=== PATIENT | female | born 2005 | race Caucasian/White ===

== ENCOUNTER 2025-07-10 12:01 | Emergency (ER) | payer MEDICAID ==
[~2025-07-10] VITALS: Ht 162.6 cm; Wt 49.0 kg
[2025-07-10 12:10] VITALS: TEMP 37.2; O2SAT 99
[2025-07-10 13:23] LABS: CLARITY URINE CLEAR (CLEAR); COLOR URINE DARK YELLOW (YELLOW); GLUCOSE URINE NEGATIVE (NEGATIVE); KETONES URINE 3+ (NEGATIVE); LEUKOCYTE ESTERASE URINE TRACE (NEGATIVE); NITRITE URINE NEGATIVE (NEGATIVE); OCCULT BLOOD URINE 3+ (NEGATIVE); PH URINE 6.0 (4.5-8.0); PROTEIN URINE 1+ (NEGATIVE); SPECIFIC GRAVITY URINE 1.017 (1.005-1.030); UROBILINOGEN URINE 1.0 E.U./dL (0.2-1.0)
[2025-07-10 13:45] LABS: BACTERIA URINE 1+; SQUAMOUS EPITHELIAL CELL URINE 1+ /lpf (RARE/1+); YEAST URINE NONE SEEN
[2025-07-10 14:26] LABS: BASOPHILS % 0.2 % (0.0-2.0); EOSINOPHILS % 0.1 % (0.0-5.0); HEMATOCRIT. 40.0 % (36.0-48.0); HEMOGLOBIN. 13.3 g/dL (12.0-16.0); LYMPHOCYTES % 8.5 % (20.0-50.0); MEAN PLATELET VOLUME 8.2 fl (7.4-10.4); MONOCYTES % 13.6 % (2.0-8.0); NEUTROPHILS % 77.6 % (40.0-76.0); PLATELET 219 x1000/uL (130-400); RED BLOOD CELL COUNT 4.32 mill/uL (4.2-5.4); RED CELL DISTRIBUTION WIDTH 12.6 % (11.6-14.6)
[2025-07-10 14:39] LABS: CREATININE 0.8 mg/dL (0.6-1.0); HCG SCREEN NEGATIVE; UREA NITROGEN BLOOD 8 mg/dL (9-23)
[2025-07-10 14:41] LABS: ASPARTATE AMINOTRANSFERASE 12 IU/L (<34); BILIRUBIN DIRECT 0.4 mg/dL (<=3.0); BILIRUBIN TOTAL 1.3 mg/dL (0.1-1.0); PROTEIN TOTAL 7.8 g/dL (6.0-8.3)
[2025-07-10] MEDS ORDERED: CEPH500C2 MT (15:41)
[2025-07-10] MEDS: ACETAMINOPHEN 325MG TABLET PO ONE (16:16)
[2025-07-10 16:27] VITALS: BP 113/69; PULSE 90; RESP 18; O2SAT 100
== END 2025-07-10 16:39 | disposition home or self-care (01) ==
LOC: ER 12:01
DX: R39.0 Extravasation of urine (principal); E86.0 Dehydration; N20.0 Calculus of kidney
CPT/HCPCS: 36415; 74176; 76770; 80048; 80076; 81003; 81025; 83735; 84703; 85025; 99284